=== PATIENT | male | born 1990 | race Caucasian/White ===

== ENCOUNTER 2017-05-13 19:14 | Emergency (ER) | payer BC ==
--- NOTE | 2017-05-13 19:48 | EDM.PDOC ---
ED HPI GENERAL MEDICAL PROBLEM - General Chief Complaint: ENT Problem Stated Complaint: JAW PAIN Time Seen by Provider: 05/13/17 19:48 Source of Information: Reports: Patient - History of Present Illness INITIAL COMMENTS - FREE TEXT/NARRATIVE: HISTORY AND PHYSICAL: History of present illness: [Patient presents with jaw pain He is tender over the lower central incisors, as well as chin left, no redness warmth or swelling, he has a history of a metal plate fixation secondary to a broken jaw in the remote past he attributes pain and swelling to this although he describes no trauma Exam his teeth seem more tender and the focus of the pain again no fever nausea vomiting chills sweats ] Review of systems: As per history of present illness and below otherwise all systems reviewed and negative. Past medical history: As per history of present illness and as reviewed below otherwise noncontributory. Surgical history: As per history of present illness and as reviewed below otherwise noncontributory. Social history: No reported history of drug or alcohol abuse. Family history: As per history of present illness and as reviewed below otherwise noncontributory. Physical exam: HEENT: Atraumatic, normocephalic, pupils reactive, negative for conjunctival pallor or scleral icterus, mucous membranes moist, throat clear, neck supple, nontender, trachea midline. No redness or warmth however tender over the chin cleft as well as exquisite tenderness with pushing on his front central incisors no redness warmth or fluctuance Lungs: Clear to auscultation, breath sounds equal bilaterally, chest nontender. Heart: S1S2, regular, negative for clicks, rubs, or JVD. Abdomen: Soft, nondistended, nontender. Negative for masses or hepatosplenomegaly. Negative for costovertebral tenderness. Pelvis: Stable nontender. Genitourinary: Deferred. Rectal: Deferred. Extremities: Atraumatic, negative for cords or calf pain. Neurovascular unremarkable. Neuro: Awake, alert, oriented. Cranial nerves II through XII unremarkable. Cerebellum unremarkable. Motor and sensory unremarkable throughout. Exam nonfocal. Diagnostics: [Patient offered CT evaluation to see if there is a hardware malfunction or abscess he declined/refused stating he has to be to work soon. ] Therapeutics: []Amoxicillin 875 by mouth twice a day #20 no refill Toradol 10 mg by mouth 3 times a day when necessary #15 no refill Impression: [Dental pain] Definitive disposition and diagnosis as appropriate pending reevaluation and review of above. jaw Pain Score (Numeric/FACES): 10 - Related Data Allergies Allergy/AdvReac Type Severity Reaction Status Date / Time No Known Allergies Allergy Verified 05/13/17 19:59 Home Meds: Home Meds . [No Known Home Meds] 07/30/13 [History] Social & Family History - Tobacco Use Years of Tobacco use: 5 - Alcohol Use Days Per Week of Alcohol Use: 0 - Recreational Drug Use Recreational Drug Use: No ED ROS GENERAL - Review of Systems Review Of Systems: ROS reveals no pertinent complaints other than HPI. ED EXAM, GENERAL - Physical Exam Exam: See Below Course - Vital Signs Last Recorded V/S: Last Vital Signs Temp 98.6 F 05/13/17 19:14 Pulse 88 05/13/17 19:14 Resp 18 05/13/17 19:14 BP 138/89 05/13/17 19:14 Pulse Ox 98 05/13/17 19:14 Departure - Departure Time of Disposition: 20:06 Disposition: Home, Self-Care 01 Condition: Good Clinical Impression: Pain, dental - Discharge Information Referrals: PCP,None [Primary Care Provider] - Forms: ED Department Discharge Additional Instructions: Medication as prescribed Return if symptoms persist or worsen Follow-up with dentist as soon as possible Provided list of area dentists Follow-up with primary care as needed [facility] - Primary Care [address] [place] [id number] The following information is given to patients seen in the emergency department who are being discharged to home. This information is to outline your options for follow-up care. We provide all patients seen in our emergency department with a follow-up referral. The need for follow-up, as well as the timing and circumstances, are variable depending upon the specifics of your emergency department visit. If you don't have a primary care physician on staff, we will provide you with a referral. We always advise you to contact your personal physician following an emergency department visit to inform them of the circumstance of the visit and for follow-up with them and/or the need for any referrals to a consulting specialist. The emergency department will also refer you to a specialist when appropriate. This referral assures that you have the opportunity for follow-up care with a specialist. All of these measure are taken in an effort to provide you with optimal care, which includes your follow-up. Under all circumstances we always encourage you to contact your private physician who remains a resource for coordinating your care. When calling for follow-up care, please make the office aware that this follow-up is from your recent emergency room visit. If for any reason you are refused follow-up, please contact the [facility] emergency department at and asked to speak to the emergency department charge nurse.
== END 2017-05-13 20:25 | disposition home or self-care (01) ==
LOC: MW.ED 19:14
DX: K08.89 Other specified disorders of teeth and supporting structures (principal); Z72.0 Tobacco use
CPT/HCPCS: 99283

== ENCOUNTER 2017-05-14 21:31 | Observation (INO) | payer BC ==
--- NOTE | 2017-05-14 21:37 | EDM.PDOC ---
ED HPI GENERAL MEDICAL PROBLEM - General Chief Complaint: ENT Problem Stated Complaint: JAW PAIN Time Seen by Provider: 05/14/17 21:37 Source of Information: Reports: Patient - History of Present Illness INITIAL COMMENTS - FREE TEXT/NARRATIVE: HISTORY AND PHYSICAL: History of present illness: [Patient presents with jaw pain again tonight, last night I did see him for similar complaint head pain with pressure applied to the central incisors, he does have a history of hardware placement from a broken jaw in the remote past 8 years prior No current fever nausea vomiting chills sweats she does complain of pain 5 out of 10 anterior jaw improves with Toradol for about an hour but then returns somewhat symptomatically improved from yesterday with oral antibiotics ] Review of systems: As per history of present illness and below otherwise all systems reviewed and negative. Past medical history: As per history of present illness and as reviewed below otherwise noncontributory. Surgical history: As per history of present illness and as reviewed below otherwise noncontributory. Social history: No reported history of drug or alcohol abuse. Family history: As per history of present illness and as reviewed below otherwise noncontributory. Physical exam: HEENT: Atraumatic, normocephalic, pupils reactive, negative for conjunctival pallor or scleral icterus, mucous membranes moist, throat clear, neck supple, nontender, trachea midline. No redness warmth or pointing of the abscess on the anterior chin Lungs: Clear to auscultation, breath sounds equal bilaterally, chest nontender. Heart: S1S2, regular, negative for clicks, rubs, or JVD. Abdomen: Soft, nondistended, nontender. Negative for masses or hepatosplenomegaly. Negative for costovertebral tenderness. Pelvis: Stable nontender. Genitourinary: Deferred. Rectal: Deferred. Extremities: Atraumatic, negative for cords or calf pain. Neurovascular unremarkable. Neuro: Awake, alert, oriented. Cranial nerves II through XII unremarkable. Cerebellum unremarkable. Motor and sensory unremarkable throughout. Exam nonfocal. Diagnostics: [CBC BMP blood cultures obtained CT maxillofacial with contrast ] Therapeutics: [Normal saline 1 25 mL per hour Vancomycin 1 g IV Cleocin 300 mg IV Initially I had wanted to call maxillofacial and transfer the patient note however patient flatly refuses transfer to another town. We did discuss risks and benefits. I have discussed patient with Dr. Bañuelos does not feel comfortable performing procedures on the face In lieu of the fact the patient is refusing transfer Dr. Arnold did accept the patient has Dr. Kwon and ENT are both special education case manager in the morning will have them follow on redirect, I did discuss with the patient in the event that either of these providers are unable to provide the service lid transfer may be required at that time he continues to state he is on willing to be transferred ] Impression: [Facial abscess midline 2.4 x 1.4 cm, previous hardware Cannot rule out osteomyelitis ] Definitive disposition and diagnosis as appropriate pending reevaluation and review of above. jaw Pain Score (Numeric/FACES): 10 - Related Data Allergies Allergy/AdvReac Type Severity Reaction Status Date / Time No Known Allergies Allergy Verified 05/14/17 21:39 Home Meds: Home Meds Amoxicillin 1 cap PO BID 05/14/17 [History] Past Medical History - Past Surgical History HEENT Surgical History: Reports: Other (See Below) Other HEENT Surgeries/Procedures: Jaw sx Social & Family History - Family History Family Medical History: Noncontributory - Tobacco Use Smoking Status *Q: Current Every Day Smoker Years of Tobacco use: 5 Packs/Tins Daily: 1 - Alcohol Use Days Per Week of Alcohol Use: 0 - Recreational Drug Use Recreational Drug Use: No ED ROS GENERAL - Review of Systems Review Of Systems: ROS reveals no pertinent complaints other than HPI. ED EXAM, GENERAL - Physical Exam Exam: See Below Course - Vital Signs Last Recorded V/S: Last Vital Signs Temp 98.6 F 05/14/17 23:30 Pulse 83 05/14/17 23:30 Resp 17 05/14/17 23:30 BP 138/82 05/14/17 23:30 Pulse Ox 95 05/14/17 23:30 - Orders/Labs/Meds Orders: Active Orders 24 hr Category Date Time Status Max Facial Sinus w Cont [CT] Stat Exams 05/14/17 21:36 Taken CULTURE BLOOD [BC] Stat Lab 05/14/17 21:47 Received CULTURE BLOOD [BC] Stat Lab 05/14/17 21:52 Received Clindamycin Phosphate [Cleocin] 300 mg Med 05/14/17 23:31 Ordered Sodium Chloride 0.9% [Normal Saline] 50 ml IV ONETIME Sodium Chloride 0.9% [Normal Saline] 1,000 ml Med 05/14/17 23:30 Active IV STAT Vancomycin [Vancocin] 1 gm Med 05/14/17 23:17 Active Sodium Chloride 0.9% [Normal Saline] 250 ml IV ONETIME Blood Culture x2 Reflex Set [OM.PC] Stat Oth 05/14/17 21:38 Ordered Medication Orders Vancomycin HCl 1 gm/ Sodium (Chloride) 250 mls @ 250 mls/hr IV ONETIME ONE Stop: 05/15/17 00:16 Sodium Chloride (Normal Saline) 1,000 mls @ 125 mls/hr IV STAT FREDIS Last Admin: 05/14/17 23:31 Dose: 125 mls/hr Labs: Laboratory Tests 05/14/17 05/14/17 Range/Units 21:47 21:47 WBC 10.46 (4.0-11.0) K/uL RBC 4.75 (4.50-5.90) M/uL Hgb 13.9 (13.0-17.0) g/dL Hct 40.8 (38.0-50.0) % MCV 85.9 (80.0-98.0) fL MCH 29.3 (27.0-32.0) pg MCHC 34.1 (31.0-37.0) g/dL RDW Std Deviation 41.6 (28.0-62.0) fl RDW Coeff of David 13 (11.0-15.0) % Plt Count 309 (150-400) K/uL MPV 9.80 (7.40-12.00) fL Neut % (Auto) 76.9 (48.0-80.0) % Lymph % (Auto) 16.6 (16.0-40.0) % [place] % (Auto) 5.5 (0.0-15.0) % Eos % (Auto) 0.8 (0.0-7.0) % Baso % (Auto) 0.2 (0.0-1.5) % Neut # (Auto) 8.0 H (1.4-5.7) K/uL Lymph # (Auto) 1.7 (0.6-2.4) K/uL [place] # (Auto) 0.6 (0.0-0.8) K/uL Eos # (Auto) 0.1 (0.0-0.7) K/uL Baso # (Auto) 0.0 (0.0-0.1) K/uL Nucleated RBC % 0.0 /100WBC Nucleated RBCs # 0 K/uL Sodium 140 (136-148) mmol/L Potassium 3.9 (3.5-5.1) mmol/L Chloride 103 (98-107) mmol/L Carbon Dioxide 26.4 (21.0-32.0) mmol/L BUN 11 (7.0-18.0) mg/dL Creatinine 0.9 (0.8-1.3) mg/dL Est Cr Clr Drug Dosing 134.12 mL/min Estimated GFR (MDRD) > 60.0 ml/min Glucose 119 H (74-106) mg/dL Calcium 8.6 (8.5-10.1) mg/dL Meds: Medications Generic Name Dose Route Start Last Admin Trade Name Freq PRN Reason Stop Dose Admin Vancomycin HCl 1 gm/ Sodium 250 mls @ 250 mls/hr 05/14/17 23:17 Chloride IV 05/15/17 00:16 ONETIME ONE Sodium Chloride 1,000 mls @ 125 mls/hr 05/14/17 23:30 05/14/17 23:31 Normal Saline IV 125 mls/hr STAT FREDIS Administration Discontinued Medications Generic Name Dose Route Start Last Admin Trade Name Freq PRN Reason Stop Dose Admin Iopamidol 75 ml 05/14/17 22:49 05/14/17 22:52 Isovue Multipack-370 (76%) IVPUSH 05/14/17 22:50 75 ml ONETIME ONE Administration Morphine Sulfate 2 mg 05/14/17 23:17 Morphine IVPUSH 05/14/17 23:18 ONETIME ONE Departure - Departure Time of Disposition: 23:35 Disposition: Home, Self-Care 01 Condition: Good Clinical Impression: Abscess - Discharge Information Referrals: PCP,None [Primary Care Provider] - Forms: ED Department Discharge - My Orders Last 24 Hours: My Active Orders 05/14/17 21:36 Max Facial Sinus w Cont [CT] Stat 05/14/17 21:38 Blood Culture x2 Reflex Set [OM.PC] Stat 05/14/17 21:47 CULTURE BLOOD [BC] Stat 05/14/17 21:52 CULTURE BLOOD [BC] Stat 05/14/17 23:17 Vancomycin [Vancocin] 1 gm Sodium Chloride 0.9% [Normal Saline] 250 ml IV ONETIME 05/14/17 23:30 Sodium Chloride 0.9% [Normal Saline] 1,000 ml IV STAT 05/14/17 23:31 Clindamycin Phosphate [Cleocin] 300 mg Sodium Chloride 0.9% [Normal Saline] 50 ml IV ONETIME - Assessment/Plan Last 24 Hours: My Active Orders 05/14/17 21:36 Max Facial Sinus w Cont [CT] Stat 05/14/17 21:38 Blood Culture x2 Reflex Set [OM.PC] Stat 05/14/17 21:47 CULTURE BLOOD [BC] Stat 05/14/17 21:52 CULTURE BLOOD [BC] Stat 05/14/17 23:17 Vancomycin [Vancocin] 1 gm Sodium Chloride 0.9% [Normal Saline] 250 ml IV ONETIME 05/14/17 23:30 Sodium Chloride 0.9% [Normal Saline] 1,000 ml IV STAT 05/14/17 23:31 Clindamycin Phosphate [Cleocin] 300 mg Sodium Chloride 0.9% [Normal Saline] 50 ml IV ONETIME
[2017-05-14 22:14] LABS: CHLORIDE,CL 103 mmol/L (98-107); SODIUM,NA 140 mmol/L (136-148)
[2017-05-14] MEDS ORDERED: Iopamidol 755 MG/ML 200 ML Multipack Bottle IVPUSH ONE (22:49)
[2017-05-14] MEDS ORDERED: Morphine 2 MG/ML Syringe IVPUSH ONE (23:17)
[2017-05-14] MEDS ORDERED: Sodium Chloride 0.9% 1,000 ML IV SCH (23:30)
[2017-05-14] MEDS ORDERED: Clindamycin Phosphate in D5W 300 MG in Premix Bag 1 BAG IV ONE ×2 (23:31)
[2017-05-15] MEDS ORDERED: HYDROmorphone 2 MG/ML Syringe IVPUSH ONE (00:16)
[2017-05-15] MEDS ORDERED: HYDROmorphone 2 MG/ML SDV IVPUSH STA (00:16)
[2017-05-15] MEDS ORDERED: HYDROmorphone 2 MG/ML SDV ONE (00:21)
[2017-05-15] MEDS ORDERED: Ondansetron 4 MG/2 ML SDV IVPUSH PRN (01:16)
[2017-05-15] MEDS ORDERED: Sodium Chloride 0.9% 1,000 ML IV SCH (01:30)
[2017-05-15] MEDS: HYDROmorphone 1 MG/ML Syringe IVPUSH PRN ×2 (05:16→06:30)
[2017-05-15] MEDS: Clindamycin Phosphate in D5W 300 MG in Premix Bag 1 BAG IV SCH ×6 (06:05→18:34)
[2017-05-15 06:25] LABS: CHLORIDE,CL 106 mmol/L (98-107); SODIUM,NA 139 mmol/L (136-148)
[2017-05-15] MEDS: Vancomycin 1.5 GM in Sodium Chloride 0.9% 500 ML IV SCH ×3 (07:50→23:28)
[2017-05-15] MEDS: Nicotine 7 MG/24 Hr Patch TRDERM SCH (08:00)
--- NOTE | 2017-05-15 08:33 | CT ---
EXAM DATE: 05/14/17 PATIENT'S AGE: 26 Patient: AMBREEN MCDANIEL Facility: [place], [place] Site . Site : 1988 Study: CT Facial W CONT [id number]/4/2018 10:59:34 PM Ordering Physician: Gino Bean Final Report: INDICATION: Pain on left side of chin with swelling. Patient states surgery on jaw in 2008 to fix a fracture. TECHNIQUE: CT maxillofacial with i.v. contrast. Coronal and sagittal reformats were obtained. CONTRAST: 75 mL Isovue 370 COMPARISON: None FINDINGS: Bone: No acute fractures or aggressive bone lesions are identified. Joint: The temporomandibular joints are unremarkable in appearance. Sinus: The sinuses are well-aerated with no significant mucosal thickening or retained secretions seen. The ostiomeatal units are patent. The nasal turbinates are normal. The nasal septum is midline and intact. Orbit: The visualized orbits are grossly unremarkable. Soft tissue: There is a fluid collection with peripheral enhancing margins anterior to the midline mandible where the patient had previous ORIF with metallic plate and is for bicortical screws. This fluid collection measures 2.4 x 1.4 cm. Bilateral subcentimeter submandibular and jugular lymph nodes are present and likely reactive. IMPRESSION: 1. Midline facial abscess present anterior to the mandible measuring 2.4 x 1.4 cm. Osteomyelitis of the adjacent mandible should be presumed until proven otherwise. Dictated by Karl Saavedra MD @ 05/14/2017 11:08:51 PM Dictated by: Karl Saavedra MD @ 05/14/2017 23:08:57 (Electronic Signature) Report Signed by Proxy. [facility]
--- NOTE | 2017-05-15 09:16 | PCM.HP ---
H&P History of Present Illness - General Date of Service: 05/15/17 Admit Problem/Dx: Admission Diagnosis/Problem Admission Diagnosis/Problem Osteomyelitis Source of Information: Patient History Limitations: Reports: No Limitations - History of Present Illness Initial Comments - Free Text/Narative: On 6-year-old male presenting with anterior lower jaw pain particularly in the mandibular area secondary to an abscess formation. 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 Patient was seen in the ER on Monday and sent home secondary to possibly a dental issue however the patient was given amoxicillin Toradol but the pain did not go away and the patient came back Monday and after CT imaging which showed a anterior submandibular abscess of the lower jaw patient was admitted for abscess formation and possible osteomyelitis. Patient has never had an abscess formed in this region, nor has he had osteomyelitis in the past. Patient denies IV drug abuse or any trauma to the site. jaw Pain Score (Numeric/FACES): 7 - Related Data Allergies/Adverse Reactions: Allergies Allergy/AdvReac Type Severity Reaction Status Date / Time aspirin Allergy Stomach Verified 05/15/17 00:47 Upset Home Medications: Home Meds Amoxicillin 1 cap PO BID 05/14/17 [History] Past Medical History HEENT History: Reports: None Cardiovascular History: Reports: None Respiratory History: Reports: None Gastrointestinal History: Reports: None Genitourinary History: Reports: None Musculoskeletal History: Reports: None Neurological History: Reports: None Psychiatric History: Reports: None Endocrine/Metabolic History: Reports: None Hematologic History: Reports: None Immunologic History: Reports: None Oncologic (Cancer) History: Reports: None Dermatologic History: Reports: None - Infectious Disease History Infectious Disease History: Reports: None - Past Surgical History Head Surgeries/Procedures: Reports: None HEENT Surgical History: Reports: Other (See Below) Other HEENT Surgeries/Procedures: Jaw sx 8 years ago Cardiovascular Surgical History: Reports: None Social & Family History - Family History Family Medical History: Noncontributory - Tobacco Use Smoking Status *Q: Current Every Day Smoker Years of Tobacco use: 5 Packs/Tins Daily: 0.5 Used Tobacco, but Quit: No Second Hand Smoke Exposure: No - Caffeine Use Caffeine Use: Reports: Coffee - Alcohol Use Days Per Week of Alcohol Use: 0 - Recreational Drug Use Recreational Drug Use: No H&P Review of Systems - Review of Systems: Review Of Systems: ROS reveals no pertinent complaints other than HPI. Exam - Exam Exam: See Below - Vital Signs Vital Signs: Last Vital Signs Temp 37.7 C 05/15/17 08:00 Pulse 85 05/15/17 08:00 Resp 20 05/15/17 08:00 BP 137/86 05/15/17 08:00 Pulse Ox 96 05/15/17 08:00 Weight: 106.5 kg - Exam General: Alert, Oriented, Cooperative, Moderate Distress HEENT: Other (Lower jaw mandible area abscess with obvious pain on palpation.) Lungs: Clear to Auscultation, Normal Respiratory Effort Cardiovascular: Regular Rate, Regular Rhythm GI/Abdominal Exam: Normal Bowel Sounds - Patient Data Lab Results Last 24 hrs: Laboratory Results - last 24 hr 05/15/17 05/15/17 Range/Units 05:35 05:35 WBC 10.23 (4.0-11.0) K/uL RBC 4.68 (4.50-5.90) M/uL Hgb 13.2 (13.0-17.0) g/dL Hct 40.0 (38.0-50.0) % MCV 85.5 (80.0-98.0) fL MCH 28.2 (27.0-32.0) pg MCHC 33.0 (31.0-37.0) g/dL RDW Std Deviation 41.1 (28.0-62.0) fl RDW Coeff of David 13 (11.0-15.0) % Plt Count 284 (150-400) K/uL MPV 9.80 (7.40-12.00) fL Neut % (Auto) 73.9 (48.0-80.0) % Lymph % (Auto) 16.8 (16.0-40.0) % [place] % (Auto) 8.5 (0.0-15.0) % Eos % (Auto) 0.7 (0.0-7.0) % Baso % (Auto) 0.1 (0.0-1.5) % Neut # (Auto) 7.6 H (1.4-5.7) K/uL Lymph # (Auto) 1.7 (0.6-2.4) K/uL [place] # (Auto) 0.9 H (0.0-0.8) K/uL Eos # (Auto) 0.1 (0.0-0.7) K/uL Baso # (Auto) 0.0 (0.0-0.1) K/uL Nucleated RBC % 0.0 /100WBC Nucleated RBCs # 0 K/uL Sodium 139 (136-148) mmol/L Potassium 4.2 (3.5-5.1) mmol/L Chloride 106 (98-107) mmol/L Carbon Dioxide 27.1 (21.0-32.0) mmol/L BUN 8 (7.0-18.0) mg/dL Creatinine 0.9 (0.8-1.3) mg/dL Est Cr Clr Drug Dosing 134.12 mL/min Estimated GFR (MDRD) > 60.0 ml/min Glucose 101 (74-106) mg/dL Calcium 8.6 (8.5-10.1) mg/dL Result Diagrams: 05/15/17 05:35 05/15/17 05:35 *Q Meaningful Use (ADM) - VTE *Q VTE Criteria *Q: - Stroke *Q Stroke Criteria *Q: - AMI *Q AMI Criteria *Q: Problem List Initiated/Reviewed/Updated: Yes Orders Last 24hrs: Active Orders 24 hr Category Date Time Status Nothing Per Oral Diet [DIET] Diet 05/15/17 Breakfast Active VANCOMYCIN TROUGH [CHEM] Timed Lab 05/16/17 15:30 Ordered Clindamycin Phosphate in D5W [Cleocin in D5W] 300 mg Med 05/15/17 07:00 Active Premix Bag 1 bag IV Q6H HYDROmorphone [Dilaudid] Med 05/15/17 08:57 Ordered 2 mg IVPUSH Q2H PRN Nicotine [Habitrol] Med 05/15/17 09:00 Active 7 mg TRDERM DAILY Ondansetron [Zofran] Med 05/15/17 01:16 Active 4 mg IVPUSH Q4H PRN Sodium Chloride 0.9% [Normal Saline] 1,000 ml Med 05/15/17 01:30 Active IV ASDIRECTED Vancomycin 1.5 gm Med 05/15/17 08:00 Active Sodium Chloride 0.9% [Normal Saline] 500 ml IV Q8H Vancomycin Pharmacy to Dose [Pharmacy to Dose - Med 05/15/17 01:30 Active Vancomycin] 1 dose .XX ASDIRECTED Medication Orders Hydromorphone HCl (Dilaudid) 2 mg IVPUSH Q2H PRN PRN Reason: Pain Sodium Chloride (Normal Saline) 1,000 mls @ 125 mls/hr IV STAT [facility] Last Admin: 05/14/17 23:31 Dose: 125 mls/hr Sodium Chloride (Normal Saline) 1,000 mls @ 125 mls/hr IV ASDIRECTED [facility] Last Admin: 05/15/17 08:03 Dose: 125 mls/hr Clindamycin Phosphate 300 mg/ (Premix) 50 mls @ 150 mls/hr IV Q6H [facility] Last Infusion: 05/15/17 06:25 Dose: 150 mls/hr Admin: 05/15/17 06:05 Dose: 150 mls/hr Vancomycin HCl 1.5 gm/ Sodium (Chloride) 500 mls @ 333.333 mls/hr IV Q8H [facility] Last Admin: 05/15/17 07:50 Dose: 333.333 mls/hr Nicotine (Habitrol) 7 mg TRDERM DAILY [facility] Last Admin: 05/15/17 08:00 Dose: 7 mg Ondansetron HCl (Zofran) 4 mg IVPUSH Q4H PRN PRN Reason: Nausea/Vomiting Vancomycin HCl (Pharmacy To Dose - Vancomycin) 1 dose .XX ASDIRECTED [facility] Assessment/Plan Comment:: 26-year-old male presenting with anterior lower jaw abscess with possible osteomyelitis that needs to be ruled out. Dr. Ratna Hurst and Dr. Melissa Bean were consulted, initially Dr. Bean ENT after assessing the patient and imaging stated that due to the hardware that was in place and with her expertise she was uncomfortable managing/draining this site without causing severe possible complications to the patient. Afterwards Dr. Hurst was consulted who assessed the patient, drained the abscess , and has stated that the patient is okay to continue the IV antibiotics that were started on him today including clindamycin and vancomycin that the patient can be discharged tomorrow after 2 weeks he will follow-up with her in her office where she will remove his plate that was placed as if she were to remove the plate now the patient would likely call lies the bone and causing osteomyelitic infection. Will require discharged tomorrow with clindamycin and Bactrim double strength. Pain control with IV Dilaudid and oral oxycodone. Labs in the morning, wound culture attained shall continue to follow.
[2017-05-15] MEDS: HYDROmorphone 2 MG/ML Syringe IVPUSH PRN ×6 (09:34→22:24)
[2017-05-15] MEDS ORDERED: HYDROmorphone 1 MG/ML Syringe IVPUSH ONE (12:40)
[2017-05-15] MEDS ORDERED: oxyCODONE 5 MG Tab PO PRN (15:40)
[2017-05-15] MEDS: oxyCODONE 5 MG Tab PO PRN (15:55)
[2017-05-15] MEDS ORDERED: Bupivacaine 0.25%/EPINEPHrine 1:200,000 10 ML SDV INJECT ONE (16:37)
[2017-05-15] MEDS ORDERED: Lidocaine 2% 5 ML SDV INJECT ONE (16:37)
--- NOTE | 2017-05-15 17:24 | PCM.CONS ---
H&P History of Present Illness - General Date of Service: 05/15/17 Admit Problem/Dx: Admission Diagnosis/Problem Admission Diagnosis/Problem Chin abscess over hardware Source of Information: Patient, Provider, RN History Limitations: Reports: No Limitations - History of Present Illness Initial Comments - Free Text/Narative: chronic draining wound and abscess on ct. Swelling and pain for the last week again. Never had this much before. Never healed after the initial plate surgery and chronic tract. Occasionally drained before but never this swollen or this much. No IV drug use. Smoker. Otherwise healthy. Discussed drainage and removal of the plate in a delayed fashion once the infection has improved. He would like to proceed. Plan plate removal in about 10-14 days - May 26. Onset of Symptoms: Reports: Gradual Duration of Symptoms: Reports: Day(s): (5) Location: Reports: Face Quality: Reports: Ache, Pressure Improves with: Reports: Immobilization, Medication Worsens with: Reports: Movement Context: Denies: Sick Contact, Trauma Associated Symptoms: Denies: No Other Symptoms jaw Pain Score (Numeric/FACES): 7 - Related Data Allergies/Adverse Reactions: Allergies Allergy/AdvReac Type Severity Reaction Status Date / Time aspirin Allergy Stomach Verified 05/15/17 00:47 Upset Home Medications: Home Meds Amoxicillin 1 cap PO BID 05/14/17 [History] Past Medical History HEENT History: Reports: None Cardiovascular History: Reports: None Respiratory History: Reports: None Gastrointestinal History: Reports: None Genitourinary History: Reports: None Musculoskeletal History: Reports: None Neurological History: Reports: None Psychiatric History: Reports: None Endocrine/Metabolic History: Reports: None Hematologic History: Reports: None Immunologic History: Reports: None Oncologic (Cancer) History: Reports: None Dermatologic History: Reports: None - Infectious Disease History Infectious Disease History: Reports: None - Past Surgical History Head Surgeries/Procedures: Reports: None HEENT Surgical History: Reports: Other (See Below) Other HEENT Surgeries/Procedures: Jaw sx 8 years ago Cardiovascular Surgical History: Reports: None Social & Family History - Family History Family Medical History: Noncontributory - Tobacco Use Smoking Status *Q: Current Every Day Smoker Years of Tobacco use: 5 Packs/Tins Daily: 0.5 Used Tobacco, but Quit: No Second Hand Smoke Exposure: No - Caffeine Use Caffeine Use: Reports: Coffee - Alcohol Use Days Per Week of Alcohol Use: 0 - Recreational Drug Use Recreational Drug Use: No H&P Review of Systems - Review of Systems: Review Of Systems: See Below General: Reports: No Symptoms. Denies: Fever, Chills HEENT: Reports: Other (chin pain) Pulmonary: Reports: No Symptoms Cardiovascular: Reports: No Symptoms Musculoskeletal: Reports: No Symptoms Skin: Reports: Wound (intraoral drainge. no skin symptoms) Psychiatric: Reports: No Symptoms Neurological: Reports: No Symptoms Hematologic/Lymphatic: Reports: No Symptoms Immunologic: Reports: No Symptoms Exam - Exam Exam: See Below - Vital Signs Vital Signs: Last Vital Signs Temp 98.5 F 05/15/17 15:47 Pulse 81 05/15/17 15:47 Resp 22 H 05/15/17 15:47 BP 140/80 05/15/17 15:47 Pulse Ox 96 05/15/17 15:47 Weight: 234 lb 12.677 oz - Exam Quality Assessment: No: Supplemental Oxygen, Skin Breakdown General: Alert, Oriented, Cooperative HEENT: EOMI Lungs: Normal Respiratory Effort Extremities: Normal Inspection Skin: Warm, Dry, Wound (intraoral previosu incision midline with pinpoint us drainage. Purulence present underneath in central chin area. ) Neurological: Cranial Nerves Intact Neuro Extensive - Mental Status: Alert, Oriented x3 Psychiatric: Alert, Normal Affect, Normal Mood - Patient Data Lab Results Last 24 hrs: Laboratory Results - last 24 hr 05/15/17 05/15/17 Range/Units 05:35 05:35 WBC 10.23 (4.0-11.0) K/uL RBC 4.68 (4.50-5.90) M/uL Hgb 13.2 (13.0-17.0) g/dL Hct 40.0 (38.0-50.0) % MCV 85.5 (80.0-98.0) fL MCH 28.2 (27.0-32.0) pg MCHC 33.0 (31.0-37.0) g/dL RDW Std Deviation 41.1 (28.0-62.0) fl RDW Coeff of David 13 (11.0-15.0) % Plt Count 284 (150-400) K/uL MPV 9.80 (7.40-12.00) fL Neut % (Auto) 73.9 (48.0-80.0) % Lymph % (Auto) 16.8 (16.0-40.0) % [place] % (Auto) 8.5 (0.0-15.0) % Eos % (Auto) 0.7 (0.0-7.0) % Baso % (Auto) 0.1 (0.0-1.5) % Neut # (Auto) 7.6 H (1.4-5.7) K/uL Lymph # (Auto) 1.7 (0.6-2.4) K/uL [place] # (Auto) 0.9 H (0.0-0.8) K/uL Eos # (Auto) 0.1 (0.0-0.7) K/uL Baso # (Auto) 0.0 (0.0-0.1) K/uL Nucleated RBC % 0.0 /100WBC Nucleated RBCs # 0 K/uL Sodium 139 (136-148) mmol/L Potassium 4.2 (3.5-5.1) mmol/L Chloride 106 (98-107) mmol/L Carbon Dioxide 27.1 (21.0-32.0) mmol/L BUN 8 (7.0-18.0) mg/dL Creatinine 0.9 (0.8-1.3) mg/dL Est Cr Clr Drug Dosing 134.12 mL/min Estimated GFR (MDRD) > 60.0 ml/min Glucose 101 (74-106) mg/dL Calcium 8.6 (8.5-10.1) mg/dL Result Diagrams: 05/15/17 05:35 05/15/17 05:35 Imaging Impressions Last 24 hrs: CT with abscess directly over the chin plate - does not look to involve bone. Central. Consult PN Assessment/Plan Procedures: Procedures CHEST X-RAY 2VW FRONTAL&LATL (07/30/13) EMERGENCY DEPT VISIT (07/30/13) EVALUATE PT USE OF INHALER (07/30/13) (1) Abscess SNOMED Code(s): 913928850 Code(s): L02.91 - CUTANEOUS ABSCESS, UNSPECIFIED Current Visit: Yes Problem List Initiated/Reviewed/Updated: Yes My Orders Last 24 Hours: My Active Orders 05/15/17 17:17 CULTURE WOUND [RM] Routine GRAM STAIN [RM] Routine Plan: I and D at bedside. Culture and gram stain. Antibiotics continue. Recheck in am and likely discharge on bactrim and clinda. Surgery planned for May 26 for plate removal. All questions answered. Requesting Provider: Kadie Wang Date Consult Requested: 05/15/17 Reason for Consult: chin abscess with hardware Patient History Reviewed: Yes Admission H&P Reviewed: Yes Notified Requestor: Yes Time Spent (in minutes): 45
--- NOTE | 2017-05-15 17:26 | PCM.OPNOTE ---
- General Post-Op/Procedure Note Date of Surgery/Procedure: 05/15/17 Operative Procedure(s): Incision and drainge of chin abscess Pre Op Diagnosis: chin abscess Post-Op Diagnosis: Same Anesthesia Technique: Local Primary Surgeon: Lorraine Kyae Pathology: culture sent for GS and culture Complications: None Condition: Fair Free Text/Narrative:: Intake & Output 05/15/17 05/15/17 05/15/17 07:59 15:59 23:59 Intake Total 50 1549 Output Total 0 Balance 50 1549
[2017-05-15] MEDS ORDERED: Sodium Chloride 0.9% 2.5 ML Syringe FLUSH PRN (18:19)
[2017-05-15] MEDS ORDERED: Sodium Chloride 0.9% 10 ML Syringe FLUSH PRN (18:19)
[2017-05-15] MEDS: Enoxaparin 40 MG/0.4 ML Syringe SUBCUT SCH (18:33)
[2017-05-16] MEDS: oxyCODONE 5 MG Tab PO PRN ×2 (00:01→07:02)
[2017-05-16] MEDS: Clindamycin Phosphate in D5W 300 MG in Premix Bag 1 BAG IV SCH ×4 (01:00→07:03)
[2017-05-16] MEDS: HYDROmorphone 2 MG/ML Syringe IVPUSH PRN (04:10)
[2017-05-16 06:00] LABS: CHLORIDE,CL 104 mmol/L (98-107); SODIUM,NA 141 mmol/L (136-148)
[2017-05-16] MEDS: Vancomycin 1.5 GM in Sodium Chloride 0.9% 500 ML IV SCH (07:38)
[2017-05-16] MEDS: Nicotine 7 MG/24 Hr Patch TRDERM SCH (08:38)
[2017-05-16] MEDS: Enoxaparin 40 MG/0.4 ML Syringe SUBCUT SCH (08:39)
--- NOTE | 2017-05-16 09:20 | PCM.SN ---
- Free Text/Narrative Note: Doing better today and discussed home on PO bactrim and clindamycin with pain meds. Return May 26 for hardware removal. All questions answered. Cultures pending but gram stain shows likely staph. Will double cover with clinda and bactrim and adjust if needed once results on culture and sensitivities. Oral cares instructed. Pain meds if needed.
[2017-05-16] MEDS ORDERED: Acetaminophen 325 MG Tab PO ONE (09:31)
--- NOTE | 2017-05-16 12:37 | PCM.DCSUM1 ---
<Fransisco Mejia Z - Last Filed: 05/17/17 22:14> Discharge Summary - Hospital Course HPI Initial Comments: Discharge Summary Date of admission: 05/15/2017 Date of discharge: 05/16/2017 Admitting diagnosis: #1. Abscess anterior to the mandible of lower jaw #2. #3. #4. #5. Discharge diagnoses: #1. abscess anterior mandible lower jaw status post I&D #2. #3. #4. #5. Consultations: plastic surgery/ Dr. Lorraine Kaye Procedures: I&D Hospitalization course: patient was admitted on 05/15 for an abscess formation on his lower jaw, ENT was initially spoken with stated that due to the location of the abscess and he felt uncomfortable doing the I&D. Afterwards we spoke with Dr. Hurst . Agreed to assess the patient. After examining the images and the patient physically, and I&D was done of this site. And patient was subsequently discharged the next day and pain control medication, Bactrim DS, and clindamycin. Patient shall follow up outpatient with Dr. Kaye on 05/26/2017. Disposition on discharge: Stable Condition on discharge: Home Discharge medications: Bactrim DS, clindamycin, oxycodone Follow-up instructions: Plastic surgery - Discharge Data Discharge Date: 05/16/17 Discharge Disposition: Home, Self-Care 01 Condition: Good - Patient Summary/Data Operative Procedure(s) Performed: Incision and drainge of chin abscess Consults: Consultations 05/15/17 16:12 Consult to Physician [CONS] Routine - Patient Instructions Diet: Usual Diet as Tolerated Activity: As Tolerated Driving: May Drive Today Showering/Bathing: May Shower Notify Provider of: Fever, Increased Pain, Swelling and Redness, Drainage, Nausea and/or Vomiting - Discharge Plan Prescriptions/Med Rec: Clindamycin HCl [Cleocin] 300 mg PO Q6H 11 Days #44 cap oxyCODONE [Oxycodone HCl] 10 mg PO Q4H 5 Days #30 tablet Sulfamethoxazole/Trimethoprim [Bactrim Ds Tablet] 1 each PO BID #22 tablet Home Medications: Home Meds Clindamycin HCl [Cleocin] 300 mg PO Q6H 11 Days #44 cap 05/16/17 [Rx] Sulfamethoxazole/Trimethoprim [Bactrim Ds Tablet] 1 each PO BID #22 tablet 03/06 /18 [Rx] oxyCODONE [Oxycodone HCl] 10 mg PO Q4H 5 Days #30 tablet 05/16/17 [Rx] Patient Handouts: Oxycodone tablets or capsules, Clindamycin capsules, Incision and Drainage, Care After, Sulfamethoxazole; Trimethoprim, SMX-TMP tablets Referrals: Geovanny Jacobson MD [Resident] - 05/24/17 9:30 am Lorraine Kaye MD [Physician] - 05/26/17 - Discharge Summary/Plan Comment DC Time >30 min.: No - Patient Data Vitals - Most Recent: Last Vital Signs Temp 35.7 C 05/16/17 08:00 Pulse 72 05/16/17 08:00 Resp 22 H 05/16/17 08:00 BP 128/68 05/16/17 08:00 Pulse Ox 95 05/16/17 08:00 Weight - Most Recent: 106.5 kg I&O - Last 24 hours: Intake & Output 05/15/17 05/16/17 05/16/17 22:59 06:59 14:59 Intake Total 70 900 1150 Output Total 1200 1250 400 Balance -1130 -350 750 Lab Results - Last 24 hrs: Laboratory Results - last 24 hr 05/16/17 05/16/17 Range/Units 05:01 05:01 WBC 6.43 (4.0-11.0) K/uL RBC 4.46 L (4.50-5.90) M/uL Hgb 12.7 L (13.0-17.0) g/dL Hct 37.9 L (38.0-50.0) % MCV 85.0 (80.0-98.0) fL MCH 28.5 (27.0-32.0) pg MCHC 33.5 (31.0-37.0) g/dL RDW Std Deviation 39.7 (28.0-62.0) fl RDW Coeff of David 13 (11.0-15.0) % Plt Count 260 (150-400) K/uL MPV 9.60 (7.40-12.00) fL Neut % (Auto) 57.5 (48.0-80.0) % Lymph % (Auto) 27.8 (16.0-40.0) % [place] % (Auto) 12.6 (0.0-15.0) % Eos % (Auto) 1.6 (0.0-7.0) % Baso % (Auto) 0.5 (0.0-1.5) % Neut # (Auto) 3.7 (1.4-5.7) K/uL Lymph # (Auto) 1.8 (0.6-2.4) K/uL [place] # (Auto) 0.8 (0.0-0.8) K/uL Eos # (Auto) 0.1 (0.0-0.7) K/uL Baso # (Auto) 0.0 (0.0-0.1) K/uL Nucleated RBC % 0.0 /100WBC Nucleated RBCs # 0 K/uL Sodium 141 (136-148) mmol/L Potassium 4.1 (3.5-5.1) mmol/L Chloride 104 (98-107) mmol/L Carbon Dioxide 27.0 (21.0-32.0) mmol/L BUN 6 L (7.0-18.0) mg/dL Creatinine 0.8 (0.8-1.3) mg/dL Est Cr Clr Drug Dosing 150.89 mL/min Estimated GFR (MDRD) > 60.0 ml/min Glucose 92 (74-106) mg/dL Calcium 8.7 (8.5-10.1) mg/dL Total Bilirubin 0.5 (0.2-1.0) mg/dL AST 15 (15-37) U/L ALT 23 (14-63) U/L Alkaline Phosphatase 78 (46-116) U/L Total Protein 6.6 (6.4-8.2) g/dL Albumin 3.2 L (3.4-5.0) g/dL Globulin 3.4 (2.0-3.5) g/dL Albumin/Globulin Ratio 0.9 L (1.3-2.8) BROOK Results - Last 24 hrs: Microbiology 05/15/17 17:15 Gram Stain - Preliminary SuperDimension Med Orders - Current: Current Medications Discontinued Medications Acetaminophen (Tylenol) 650 mg PO NOW ONE Stop: 05/16/17 09:32 Last Admin: 05/16/17 10:41 Dose: Not Given Bupivacaine HCl/Epinephrine Bitart (Marcaine 0.25%/Epinephrine 1:200,000) 10 ml INJECT ONETIME ONE Stop: 05/15/17 16:38 Last Admin: 05/15/17 17:07 Dose: 1 ml Clindamycin HCl (Cleocin) 300 mg PO Q6H FREDIS Enoxaparin Sodium (Lovenox) 40 mg SUBCUT DAILY FREDIS Last Admin: 05/16/17 08:39 Dose: 40 mg Hydromorphone HCl (Dilaudid) 1 mg IVPUSH ONETIME ONE Stop: 05/15/17 00:17 Last Admin: 05/15/17 00:23 Dose: Not Given Hydromorphone HCl (Dilaudid) 1 mg IVPUSH NOW STA Stop: 05/15/17 00:17 Last Admin: 05/15/17 00:22 Dose: 1 mg Hydromorphone HCl (Dilaudid) Confirm Administered Dose 2 mg .ROUTE .STK-MED ONE Stop: 05/15/17 00:22 Last Admin: 05/15/17 00:47 Dose: Not Given Hydromorphone HCl (Dilaudid) 1 mg IVPUSH Q3H PRN PRN Reason: Pain Last Admin: 05/15/17 06:30 Dose: 1 mg Hydromorphone HCl (Dilaudid) 2 mg IVPUSH Q2H PRN PRN Reason: Pain Last Admin: 05/16/17 04:10 Dose: 2 mg Hydromorphone HCl (Dilaudid) 1 mg IVPUSH ONETIME ONE Stop: 05/15/17 12:41 Last Admin: 05/15/17 13:34 Dose: 1 mg Vancomycin HCl 1 gm/ Sodium (Chloride) 250 mls @ 250 mls/hr IV ONETIME ONE Stop: 05/15/17 00:16 Last Admin: 05/14/17 23:35 Dose: 250 mls/hr Sodium Chloride (Normal Saline) 1,000 mls @ 125 mls/hr IV STAT FREDIS Last Admin: 05/14/17 23:31 Dose: 125 mls/hr Clindamycin Phosphate 300 mg/ (Sodium Chloride) 52 mls @ 100 mls/hr IV ONETIME ONE Stop: 05/15/17 00:02 Last Admin: 05/15/17 00:47 Dose: Not Given Clindamycin Phosphate 300 mg/ (Premix) 50 mls @ 150 mls/hr IV ONETIME ONE Stop: 05/14/17 23:50 Last Admin: 05/15/17 00:54 Dose: 150 mls/hr Sodium Chloride (Normal Saline) 1,000 mls @ 125 mls/hr IV ASDIRECTED [facility] Last Admin: 05/15/17 08:03 Dose: 125 mls/hr Clindamycin Phosphate 300 mg/ (Premix) 50 mls @ 150 mls/hr IV Q6H [facility] Last Admin: 05/16/17 07:03 Dose: 150 mls/hr Vancomycin HCl 1.5 gm/ Sodium (Chloride) 500 mls @ 333.333 mls/hr IV Q8H [facility] Last Admin: 05/16/17 07:38 Dose: 333.333 mls/hr Iopamidol (Isovue Multipack-370 (76%)) 75 ml IVPUSH ONETIME ONE Stop: 05/14/17 22:50 Last Admin: 05/14/17 22:52 Dose: 75 ml Lidocaine (Xylocaine-Mpf 2%) 5 ml INJECT ONETIME ONE Stop: 05/15/17 16:38 Last Admin: 05/15/17 17:06 Dose: 1 ml Morphine Sulfate (Morphine) 2 mg IVPUSH ONETIME ONE Stop: 05/14/17 23:18 Last Admin: 05/14/17 23:34 Dose: 2 mg Nicotine (Habitrol) 7 mg TRDERM DAILY [facility] Last Admin: 05/16/17 08:38 Dose: Not Given Ondansetron HCl (Zofran) 4 mg IVPUSH Q4H PRN PRN Reason: Nausea/Vomiting Oxycodone HCl (Oxycodone) 5 mg PO Q4H PRN PRN Reason: Pain Oxycodone HCl (Oxycodone) 0 mg PO Q4H PRN PRN Reason: Pain Last Admin: 05/16/17 07:02 Dose: 5 mg Sodium Chloride (Saline Flush) 10 ml FLUSH ASDIRECTED PRN PRN Reason: Keep Vein Open Sodium Chloride (Saline Flush) 2.5 ml FLUSH ASDIRECTED PRN PRN Reason: Keep Vein Open Trimethoprim/Sulfamethoxazole (Septra Ds) 1 tab PO BID [facility] Vancomycin HCl (Pharmacy To Dose - Vancomycin) 1 dose .XX ASDIRECTED FREDIS *Q Meaningful Use (DIS) - VTE *Q VTE Criteria *Q: - Stroke *Q Stroke Criteria *Q: - AMI *Q AMI Criteria *Q: <Ronni Damico - Last Filed: 05/18/17 20:33> Discharge Summary - Patient Summary/Data Consults: Consultations 05/15/17 16:12 Consult to Physician [CONS] Routine - Patient Data Vitals - Most Recent: Last Vital Signs Temp 35.7 C 05/16/17 08:00 Pulse 72 05/16/17 08:00 Resp 22 H 05/16/17 08:00 BP 128/68 05/16/17 08:00 Pulse Ox 95 05/16/17 08:00 Med Orders - Current: Current Medications Discontinued Medications Acetaminophen (Tylenol) 650 mg PO NOW ONE Stop: 05/16/17 09:32 Last Admin: 05/16/17 10:41 Dose: Not Given Bupivacaine HCl/Epinephrine Bitart (Marcaine 0.25%/Epinephrine 1:200,000) 10 ml INJECT ONETIME ONE Stop: 05/15/17 16:38 Last Admin: 05/15/17 17:07 Dose: 1 ml Clindamycin HCl (Cleocin) 300 mg PO Q6H FREDIS Enoxaparin Sodium (Lovenox) 40 mg SUBCUT DAILY FREDIS Last Admin: 05/16/17 08:39 Dose: 40 mg Hydromorphone HCl (Dilaudid) 1 mg IVPUSH ONETIME ONE Stop: 05/15/17 00:17 Last Admin: 05/15/17 00:23 Dose: Not Given Hydromorphone HCl (Dilaudid) 1 mg IVPUSH NOW STA Stop: 05/15/17 00:17 Last Admin: 05/15/17 00:22 Dose: 1 mg Hydromorphone HCl (Dilaudid) Confirm Administered Dose 2 mg .ROUTE .STK-MED ONE Stop: 05/15/17 00:22 Last Admin: 05/15/17 00:47 Dose: Not Given Hydromorphone HCl (Dilaudid) 1 mg IVPUSH Q3H PRN PRN Reason: Pain Last Admin: 05/15/17 06:30 Dose: 1 mg Hydromorphone HCl (Dilaudid) 2 mg IVPUSH Q2H PRN PRN Reason: Pain Last Admin: 05/16/17 04:10 Dose: 2 mg Hydromorphone HCl (Dilaudid) 1 mg IVPUSH ONETIME ONE Stop: 05/15/17 12:41 Last Admin: 05/15/17 13:34 Dose: 1 mg Vancomycin HCl 1 gm/ Sodium (Chloride) 250 mls @ 250 mls/hr IV ONETIME ONE Stop: 05/15/17 00:16 Last Admin: 05/14/17 23:35 Dose: 250 mls/hr Sodium Chloride (Normal Saline) 1,000 mls @ 125 mls/hr IV STAT [facility] Last Admin: 05/14/17 23:31 Dose: 125 mls/hr Clindamycin Phosphate 300 mg/ (Sodium Chloride) 52 mls @ 100 mls/hr IV ONETIME ONE Stop: 05/15/17 00:02 Last Admin: 05/15/17 00:47 Dose: Not Given Clindamycin Phosphate 300 mg/ (Premix) 50 mls @ 150 mls/hr IV ONETIME ONE Stop: 05/14/17 23:50 Last Admin: 05/15/17 00:54 Dose: 150 mls/hr Sodium Chloride (Normal Saline) 1,000 mls @ 125 mls/hr IV ASDIRECTED [facility] Last Admin: 05/15/17 08:03 Dose: 125 mls/hr Clindamycin Phosphate 300 mg/ (Premix) 50 mls @ 150 mls/hr IV Q6H [facility] Last Admin: 05/16/17 07:03 Dose: 150 mls/hr Vancomycin HCl 1.5 gm/ Sodium (Chloride) 500 mls @ 333.333 mls/hr IV Q8H [facility] Last Admin: 05/16/17 07:38 Dose: 333.333 mls/hr Iopamidol (Isovue Multipack-370 (76%)) 75 ml IVPUSH ONETIME ONE Stop: 05/14/17 22:50 Last Admin: 05/14/17 22:52 Dose: 75 ml Lidocaine (Xylocaine-Mpf 2%) 5 ml INJECT ONETIME ONE Stop: 05/15/17 16:38 Last Admin: 05/15/17 17:06 Dose: 1 ml Morphine Sulfate (Morphine) 2 mg IVPUSH ONETIME ONE Stop: 05/14/17 23:18 Last Admin: 05/14/17 23:34 Dose: 2 mg Nicotine (Habitrol) 7 mg TRDERM DAILY [facility] Last Admin: 05/16/17 08:38 Dose: Not Given Ondansetron HCl (Zofran) 4 mg IVPUSH Q4H PRN PRN Reason: Nausea/Vomiting Oxycodone HCl (Oxycodone) 5 mg PO Q4H PRN PRN Reason: Pain Oxycodone HCl (Oxycodone) 0 mg PO Q4H PRN PRN Reason: Pain Last Admin: 05/16/17 07:02 Dose: 5 mg Sodium Chloride (Saline Flush) 10 ml FLUSH ASDIRECTED PRN PRN Reason: Keep Vein Open Sodium Chloride (Saline Flush) 2.5 ml FLUSH ASDIRECTED PRN PRN Reason: Keep Vein Open Trimethoprim/Sulfamethoxazole (Septra Ds) 1 tab PO BID [facility] Vancomycin HCl (Pharmacy To Dose - Vancomycin) 1 dose .XX ASDIRECTED FREDIS *Q Meaningful Use (DIS) - VTE *Q VTE Criteria *Q: - Stroke *Q Stroke Criteria *Q: - AMI *Q AMI Criteria *Q: - Free Text/Narrative Note: I have examined the patient. I have discussed findings and treatment plan with the resident. I agree with the assessment and plan outlined in the following resident's note.
[2017-05-16] MEDS ORDERED: Sulfamethoxazole/Trimethoprim 800-160 MG Tab PO SCH (18:00)
[2017-05-16] MEDS ORDERED: Clindamycin HCl 150 MG Cap PO SCH (18:00)
--- NOTE | 2017-05-16 21:53 | OR ---
SURGEON: GOLDEN MCDONNELL MD DATE OF PROCEDURE: 05/15/2017 PREOPERATIVE DIAGNOSIS: Chin abscess. POSTOPERATIVE DIAGNOSIS: Chin abscess. PROCEDURE: Incision and drainage of chin abscess. ANESTHESIA: Local. INSPECTOR RECEIVING: None. INDICATIONS: Mr. Goldsmith is a 26-year-old gentleman with a chin abscess visualized on CT scan to be centrally. Risks and benefits of I and D were discussed with him. He already has some minor spontaneous drainage in the mouth and we will open this to allow full drainage. Risks were including, but not limited to bleeding, infection, damage to underlying or overlying structures, possible need for future interventions, possible scarring. He would like to proceed here at the bedside. PROCEDURE IN DETAIL: After local anesthesia was infiltrated into the area and adequate anesthesia was appreciated, the intraoral draining hole was opened with a 15 blade. Significant amount of pus approximately 5 to 10 mL was expressed. Once adequately expressed, the area was copiously irrigated, and the patient tolerated this well. Cultures were sent for Gram stain and sensitivity. All questions answered. FOLLOWUP INSTRUCTIONS: The patient will be maintained in the hospital overnight, likely home tomorrow on Bactrim and clindamycin as long as grafting is appropriate. We will see him back on May 26 for hardware removal as discussed. HEGGTHE / MODL /[id number]
== END 2017-05-16 11:30 | disposition home or self-care (01) ==
LOC: MW.ED 21:31 → MW.MS 23:36 → INTOOBSV 23:36 → MW.MS 05-15 00:24
PROVIDERS: ADMIT Internal Medicine; ATTEND Internal Medicine
DX: L02.01 Cutaneous abscess of face (principal); F17.210 Nicotine dependence, cigarettes, uncomplicated; Z88.6 Allergy status to analgesic agent
CPT/HCPCS: 10060; 36415; 70487; 80048; 80053; 85025; 87040; 87070; 87205; 96361; 96365; 96366; 96367; 96372; 96375; 96376; 99285; A9270; G0378; J1170; J1650; J2270; J3370; J7040; J7050; Q9967; 99283

== ENCOUNTER 2017-05-26 07:50 | Day surgery (SDC) | payer BC ==
[~2017-05-26 07:50] MED LIST: Bupivacaine 25%/EPINEPHrine/PF 30 ML ONE; Lidocaine 2% 5 ML SDV ONE; Midazolam 1 MG/ML 2 ML SDV ONE; Ondansetron 4 MG/2 ML SDV ONE; Propofol 200 MG/20 ML SDV ONE; Rocuronium 10 MG/ML 10 ML Syringe ONE; Succinylcholine 200 MG/10 ML MDV ONE; fentaNYL 250 MCG/5 ML SDV ONE
[2017-05-26] MEDS ORDERED: Bupivacaine 0.25%/EPINEPHrine 1:200,000 10 ML SDV INJECT ONE (08:00)
[2017-05-26] MEDS ORDERED: Acetaminophen/HYDROcodone 325-5 MG Tab PO PRN (08:00)
[2017-05-26] MEDS ORDERED: ceFAZolin 2 GM in Premix Bag 1 BAG IV ONE (08:00)
--- NOTE | 2017-05-26 08:34 | PCM.PREANE ---
Preanesthetic Assessment - Anesthesia/Transfusion/Family Hx Anesthesia History: Prior Anesthesia Without Reaction Family History of Anesthesia Reaction: No Transfusion History: No Prior Transfusion(s) - Review of Systems General: No Symptoms Pulmonary: No Symptoms Cardiovascular: No Symptoms Gastrointestinal: No Symptoms Neurological: No Symptoms Other: Reports: None - Physical Assessment NPO Status Date: 05/25/17 Height: 1.83 m Weight: 149.685 kg ASA Class: 2 Mental Status: Alert & Oriented x3 Airway Class: Mallampati = 1 Dentition: Reports: Normal Dentition ROM/Head Extension: Full Lungs: Clear to Auscultation, Normal Respiratory Effort Cardiovascular: Regular Rate, Regular Rhythm - Allergies Allergies/Adverse Reactions: Allergies Allergy/AdvReac Type Severity Reaction Status Date / Time aspirin Allergy Stomach Verified 05/15/17 00:47 Upset - Anesthesia Plan Pre-Op Medication Ordered: None - Acknowledgements Anesthesia Type Planned: General Anesthesia Pt an Appropriate Candidate for the Planned Anesthesia: Yes Alternatives and Risks of Anesthesia Discussed w Pt/Guardian: Yes Pt/Guardian Understands and Agrees with Anesthesia Plan: Yes Additional Comments: removal of midline mandibular plate through intraoral incision. PLAN: GET PreAnesthesia Questionnaire HEENT History: Reports: None Cardiovascular History: Reports: None Respiratory History: Reports: None Gastrointestinal History: Reports: None Genitourinary History: Reports: None Musculoskeletal History: Reports: None Neurological History: Reports: None Psychiatric History: Reports: None Endocrine/Metabolic History: Reports: None Hematologic History: Reports: None Immunologic History: Reports: None Oncologic (Cancer) History: Reports: None Dermatologic History: Reports: None - Infectious Disease History Infectious Disease History: Reports: None - Past Surgical History Head Surgeries/Procedures: Reports: None HEENT Surgical History: Reports: Other (See Below) Other HEENT Surgeries/Procedures: Jaw sx 8 years ago Cardiovascular Surgical History: Reports: None - SUBSTANCE USE Smoking Status *Q: Current Every Day Smoker Tobacco Use Within Last Twelve Months: Cigarettes Second Hand Smoke Exposure: No Days Per Week of Alcohol Use: 0 Recreational Drug Use History: No - HOME MEDS Home Medications: Home Meds Clindamycin HCl [Cleocin] 300 mg PO Q6H 11 Days #44 cap 05/16/17 [Rx] Sulfamethoxazole/Trimethoprim [Bactrim Ds Tablet] 1 each PO BID #22 tablet 05/16 [Rx] oxyCODONE [Oxycodone HCl] 10 mg PO Q4H 5 Days #30 tablet 05/16/17 [Rx] - CURRENT (IN HOUSE) MEDS Current Meds: Current Medications Hydrocodone Bitart/Acetaminophen (Two Dot 325-5 Mg) 1 tab PO Q4H PRN PRN Reason: Pain Cefazolin Sodium/Dextrose 2 gm (/ Premix) 50 mls @ 100 mls/hr IV ONETIME ONE Stop: 05/26/17 08:29 Lactated Ringer's (Ringers, Lactated) 1,000 mls @ 125 mls/hr IV ASDIRECTED FREDIS Discontinued Medications Bupivacaine HCl/Epinephrine Bitart (Marcaine 0.25%/Epinephrine 1:200,000) 10 ml INJECT ONETIME ONE Stop: 05/26/17 08:01 Fentanyl (Sublimaze) Confirm Administered Dose 250 mcg .ROUTE .STK-MED ONE Stop: 05/26/17 07:25 Bupivacaine HCl/Epinephrine Bitart (Sensorc Mpf 0.25%-Epi 1:[id number]) Confirm Administered Dose 30 mls @ as directed .ROUTE .STK-MED ONE Stop: 05/26/17 07:30 Lidocaine (Xylocaine-Mpf 2%) Confirm Administered Dose 5 ml .ROUTE .STK-MED ONE Stop: 05/26/17 07:25 Midazolam HCl (Versed 1 Mg/Ml) Confirm Administered Dose 2 mg .ROUTE .STK-MED ONE Stop: 05/26/17 07:25 Ondansetron HCl (Zofran) Confirm Administered Dose 4 mg .ROUTE .STK-MED ONE Stop: 05/26/17 07:25 Propofol (Diprivan 20 Ml) Confirm Administered Dose 200 mg .ROUTE .STK-MED ONE Stop: 05/26/17 07:25 Rocuronium Kiln (Zemuron) Confirm Administered Dose 100 mg .ROUTE .STK-MED ONE Stop: 05/26/17 07:25 Succinylcholine Chloride (Quelicin) Confirm Administered Dose 200 mg .ROUTE .STK -MED ONE Stop: 05/26/17 07:25
[2017-05-26] MEDS: Lactated Ringers 1,000 ML IV SCH ×2 (08:42→11:24)
[2017-05-26] MEDS ORDERED: ceFAZolin 1 GM Vial ONE (08:47)
[2017-05-26] MEDS ORDERED: Sodium Chloride 0.9% 20 ML ONE (08:47)
[2017-05-26] MEDS ORDERED: fentaNYL 100 MCG/2 ML SDV ONE (09:01)
[2017-05-26] MEDS: fentaNYL 100 MCG/2 ML SDV IVPUSH PRN ×4 (10:20→10:40)
--- NOTE | 2017-05-26 10:27 | PCM.POSTAN ---
POST ANESTHESIA ASSESSMENT - MENTAL STATUS Mental Status: Alert, Oriented - RESPIRATORY Respiratory Status: Respiratory Rate WNL, Airway Patent, O2 Saturation Stable - CARDIOVASCULAR CV Status: Pulse Rate WNL, Blood Pressure Stable - GASTROINTESTINAL GI Status: No Symptoms - POST OP HYDRATION Hydration Status: Adequate & Stable - OBSERVATIONS Free Text/Narrative:: Stable with self care of oral secretions now. Pain at 5-6 and tolerated well. Will move to phase II.
--- NOTE | 2017-05-26 10:49 | PCM48HPAN ---
Post Anesthesia Note - EVALUATION WITHIN 48HRS OF ANESTHETIC Vital Signs in Normal Range: Yes Patient Participated in Evaluation: Yes Respiratory Function Stable: Yes Airway Patent: Yes Cardiovascular Function Stable: Yes Hydration Status Stable: Yes Pain Control Satisfactory: Yes Nausea and Vomiting Control Satisfactory: Yes Mental Status Recovered: Yes Resp Rate: 13
[2017-05-26] MEDS ORDERED: HYDROmorphone 2 MG/ML SDV IVPUSH ONE (11:06)
--- NOTE | 2017-05-29 12:37 | PCM.OPNOTE ---
- General Post-Op/Procedure Note Date of Surgery/Procedure: 05/29/17 Operative Procedure(s): removal of mandubular plate - scres with bone ingrowth and unable to unscrew 05/14, thus leonel used to remove head of the screw on 05/[address]. Pre Op Diagnosis: mandible plate with recent infection Post-Op Diagnosis: Same Anesthesia Technique: Local, MAC Primary Surgeon: Lorraine Kaye Core Driller Helper: Tg Deutsch Complications: None Condition: Good
--- NOTE | 2017-05-29 20:41 | OR ---
SURGEON: GOLDEN MCDONNELL MD DATE OF PROCEDURE: 05/26/2017 PREOPERATIVE DIAGNOSIS: Mandible plate with recent infection and colonization causing pain. POSTOPERATIVE DIAGNOSIS: Mandible plate with recent infection and colonization causing pain. PROCEDURES: Removal of mandibular plate and screws with bony ingrowth and leonel used to remove the heads. INDICATIONS: Mr. Goldsmith is a 26-year-old gentleman with a nearly 10-year-old mandibular plate. 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 CT scan demonstrates a plate with overlying infection, which we did drain at the bedside. He has been on antibiotics since that time 2 weeks ago. He is here for mandibular plate removal. We did attempt to obtain the outside records and unfortunately they were not available. Given the time since healing and the overlying infection, we determined we would be able to remove the plate. Risks and benefits discussed including but not limited to, bleeding, infection, damage to underlying or overlying structures, possible need for future interventions, and possible scarring. In addition, given the infection, we will check for bony stability and cortex stability. Should there be any compromise, we will take bone biopsy. He does understand this as well. PROCEDURE IN DETAIL: After informed consent was obtained and placed on the chart, the patient was brought to the operating theater and laid in the supine position. After adequate general ET tube anesthesia was obtained, the area was prepped and draped and a time-out was completed to confirm side and site. 0.25% Marcaine with epinephrine was used in mandibular nerve blocks. The screws were attempted to be removed with a screwdriver, but unfortunately the bony ingrowth does not allow capture and stripped the screws unfortunately. The most right screw of the 4 screws was able to be captured and removed. The other 3 had to bur the head of the screw and leaving the deep buried stud in place. The plate was removed and the area was copiously irrigated. The remaining bone on the mandible was appreciated to be solid with cortex intact and no signs of involvement. No loosening of the screws. The remaining stems of the 3 screws were left in place and the overlying musculature was secured over this to provide good coverage. The skin and underlying musculature were closed in a layered fashion using deep 4-0 Monocryl stitches and a running 5-0 chromic stitch intraorally for a double layered watertight closure. Prior to closure, the area was copiously irrigated. The plate was sent for pathology. FOLLOWUP INSTRUCTIONS: The patient was given a prescription for oxycodone. He will see us in clinic in approximately 1 week, sooner if any problems, questions, or concerns. [id number] / NESHA /[id number]
== END 2017-05-26 12:00 | disposition home or self-care (01) ==
LOC: MW.SDS 07:50
PROVIDERS: ATTEND Plastic Surgery
DX: T85.79XA Infection and inflammatory reaction due to other internal prosthetic devices, implants and grafts, initial encounter (principal); T85.848A Pain due to other internal prosthetic devices, implants and grafts, initial encounter; Z88.8 Allergy status to other drugs, medicaments and biological substances; F17.210 Nicotine dependence, cigarettes, uncomplicated
CPT/HCPCS: 20680; J0330; J0690; J1170; J2250; J2405; J3010; J7120; 00192; 88300; J2704

== ENCOUNTER 2021-08-27 18:47 | Emergency (ER) | payer BC ==
[2021-08-27] MEDS ORDERED: Ketorolac 60 MG/2 ML SDV IM ONE (19:03)
== END 2021-08-27 20:07 | disposition home or self-care (01) ==
LOC: MW.ED 18:47
DX: S93.402A Sprain of unspecified ligament of left ankle, initial encounter (principal); Z88.6 Allergy status to analgesic agent; X50.1XXA Overexertion from prolonged static or awkward postures, initial encounter
CPT/HCPCS: 73610; 73620; 96372; 99283; J1885; 99282

== ENCOUNTER 2022-03-20 05:54 | Emergency (ER) | payer OTHER ==
[2022-03-20] MEDS ORDERED: Acetaminophen 325 MG Tab PO ONE (07:27)
== END 2022-03-20 07:40 | disposition left against medical advice (07) ==
LOC: MW.ED 05:54
DX: M25.512 Pain in left shoulder (principal); M25.532 Pain in left wrist; M25.562 Pain in left knee; Z88.6 Allergy status to analgesic agent; V49.40XA Driver injured in collision with unspecified motor vehicles in traffic accident, initial encounter; Y92.410 Unspecified street and highway as the place of occurrence of the external cause
CPT/HCPCS: 73030-26-LT; 73030-LT; 73110-26-LT; 73110-LT; 73502-26-LT; 73502-LT; 73562-26-LT; 73562-LT; 99283